=== PATIENT | female | born 1955 | race African-American/Black ===

== ENCOUNTER 2018-05-09 13:38 | Inpatient (IN) | payer MEDICARE, MEDICAID ==
[~2018-05-09] VITALS: Ht 172.7 cm; Wt 81.6 kg
[2018-05-09 14:31] LABS: BASOPHILS % 0.6 % (0.0-2.0); EOSINOPHILS % 0.5 % (0.0-5.0); HEMATOCRIT. 36.8 % (36.0-48.0); HEMOGLOBIN. 12.1 g/dL (12.0-16.0); LYMPHOCYTES % 22.6 % (20.0-50.0); MEAN CORPUSCULAR VOLUME 85.2 fL (81.0-99.0); MEAN PLATELET VOLUME 7.6 fl (7.4-10.4); NEUTROPHILS % 68.3 % (40.0-76.0); PLATELET 180 x1000/uL (130-400); RED BLOOD CELL COUNT 4.33 mill/uL (4.2-5.4)
[2018-05-09 14:35] LABS: CHLORIDE 104 mEq/L (98-107)
[2018-05-09 14:43] LABS: CREATINE KINASE 402 IU/L (26-192)
[2018-05-09 15:17] LABS: CLARITY URINE CLEAR (CLEAR); COLOR URINE YELLOW (YELLOW); KETONES URINE NEGATIVE (NEGATIVE); LEUKOCYTE ESTERASE URINE TRACE (NEGATIVE); NITRITE URINE NEGATIVE (NEGATIVE); OCCULT BLOOD URINE NEGATIVE (NEGATIVE); PH URINE 7.5 (4.5-8.0); PROTEIN URINE NEGATIVE (NEGATIVE); SPECIFIC GRAVITY URINE 1.014 (1.005-1.030); UROBILINOGEN URINE 0.2 E.U./dL (0.2-1.0)
[2018-05-09 20:00] VITALS: BP 150/79
[2018-05-09 20:30] VITALS: BP 150/79
[2018-05-09] MEDS ORDERED: LEVO300T2 PO (21:26)
[2018-05-09] MEDS ORDERED: LOSA25TA12 PO (21:26)
[2018-05-09] MEDS ORDERED: CLON0.2T MT (21:26)
[2018-05-09] MEDS ORDERED: AMLO2.5T45 PO (21:26)
[2018-05-09] MEDS ORDERED: CLON0.3T4 MT (21:26)
[2018-05-09] MEDS: METOCLOPRAMIDE HCL 5MG TABLET PO PRN (23:32)
[2018-05-09] MEDS: ACETAMINOPHEN 650MG/20.3ML UDC PO PRN (23:32)
[2018-05-10] VITALS: BP 145/74
[2018-05-10 04:00] VITALS: BP 135/74
[2018-05-10 06:06] LABS: CHLORIDE 106 mEq/L (98-107)
[2018-05-10 06:10] LABS: BASOPHILS % 0.5 % (0.0-2.0); EOSINOPHILS % 1.9 % (0.0-5.0); HEMOGLOBIN. 11.3 g/dL (12.0-16.0); LYMPHOCYTES % 37.1 % (20.0-50.0); MEAN CORPUSCULAR HEMOGLOBIN 28.1 pg (28.0-32.0); MEAN CORPUSCULAR VOLUME 84.1 fL (81.0-99.0); MEAN PLATELET VOLUME 8.4 fl (7.4-10.4); MONOCYTES % 8.5 % (2.0-8.0); PLATELET 170 x1000/uL (130-400); RED BLOOD CELL COUNT 4.03 mill/uL (4.2-5.4); RED CELL DISTRIBUTION WIDTH 14.7 % (11.6-14.6)
[2018-05-10] MEDS: BLOOD SUGAR DIAGNOSTIC STRIP TEST SCH ×2 (06:30→12:20)
[2018-05-10] MEDS ORDERED: LEVOTHYROXINE SODIUM 100MCG TABLET PO SCH (07:20)
[2018-05-10] MEDS: METOCLOPRAMIDE HCL 5MG TABLET PO PRN (08:57)
[2018-05-10] MEDS: ACETAMINOPHEN 650MG/20.3ML UDC PO PRN (08:57)
[2018-05-10] MEDS ORDERED: AMLODIPINE 2.5MG TABLET PO SCH (09:00)
[2018-05-10] MEDS ORDERED: AMLODIPINE BESYLATE 2.5 MG PO SCH (09:00)
[2018-05-10] MEDS ORDERED: LEVOTHYROXINE SODIUM 300 MCG PO SCH (09:00)
[2018-05-10] MEDS ORDERED: LOSARTAN POTASSIUM 25 MG TABLET PO SCH (09:00)
[2018-05-10] MEDS ORDERED: MEDICATION NOT ON FORMULARY EA (Losartan Potassium 25 MG) PO SCH (09:00)
[2018-05-10] MEDS ORDERED: CLONIDINE HCL MT SCH (09:00)
[2018-05-10] MEDS ORDERED: MEDICATION NOT ON FORMULARY EA (Clonidine Hcl 1 TAB) MT SCH (09:00)
[2018-05-10 15:40] VITALS: BP 124/57
[2018-05-10 17:16] LABS: T4 FREE 0.82 ng/dL (0.76-1.46)
== END 2018-05-10 16:40 | disposition home or self-care (01) | DRG 638 ==
LOC: ER 14:11 → 6EST 16:40 → ENRESERV 17:28
PROVIDERS: ADMIT Internal Medicine Nephrology; ATTEND Internal Medicine Nephrology
DX: E10.649 Type 1 diabetes mellitus with hypoglycemia without coma (principal); G93.40 Encephalopathy, unspecified; B35.1 Tinea unguium; D47.2 Monoclonal gammopathy; D64.9 Anemia, unspecified; E03.9 Hypothyroidism, unspecified; E04.1 Nontoxic single thyroid nodule; E10.319 Type 1 diabetes mellitus with unspecified diabetic retinopathy without macular edema; E55.9 Vitamin D deficiency, unspecified; E66.01 Morbid (severe) obesity due to excess calories; Z96.41 Presence of insulin pump (external) (internal); E78.00 Pure hypercholesterolemia, unspecified; E78.5 Hyperlipidemia, unspecified; I10 Essential (primary) hypertension; M06.9 Rheumatoid arthritis, unspecified; T38.3X5A Adverse effect of insulin and oral hypoglycemic [antidiabetic] drugs, initial encounter; Z83.3 Family history of diabetes mellitus; Z68.27 Body mass index [BMI] 27.0-27.9, adult; Y92.89 Other specified places as the place of occurrence of the external cause
CPT/HCPCS: 36415; 71045; 82550; 82553; 82962; 83036; 83735; 83880; 84439; 84443; 84484; 93005; 99285; J8597